=== PATIENT | male | born 1965 | race Caucasian/White ===

== ENCOUNTER 2016-08-30 16:42 | Emergency (ER) | payer OTHER | END 2016-08-30 19:50 | disposition home or self-care (01) | LOC: D.ER 16:42 | DX: S01.81XA Laceration without foreign body of other part of head, initial encounter (principal); Y04.2XXA Assault by strike against or bumped into by another person, initial encounter; Y93.89 Activity, other specified; Y92.018 Other place in single-family (private) house as the place of occurrence of the external cause; S20.212A Contusion of left front wall of thorax, initial encounter ==